=== PATIENT | male | born 1970 | race Two or more races ===

== ENCOUNTER 2023-11-30 17:54 | Emergency (ER) | payer MEDICAID, OTHER ==
[~2023-11-30] VITALS: Ht 170.2 cm; Wt 69.2 kg
[2023-11-30 18:52] LABS: Basophils # (auto) 0.1 10 ^3/uL (0-0.2); Basophils % (auto) 2.2 % (0.0-2.0); Eosinophils # (auto) 0.2 10 ^3/uL (0-0.8); Hematocrit 34.9 % (41.0-53.0); Hemoglobin 12.1 g/dL (13.5-17.5); Lymphocytes # (auto) 1.4 10 ^3/uL (0.4-5.4); Lymphocytes % (auto) 23.2 % (10.0-50.0); Mean Corpuscular Hemoglobin 27.1 pg (28.0-32.0); Mean Corpuscular Hgb Conc. 34.8 g/dL (32.0-36.0); Mean Corpuscular Volume 77.9 fL (80.0-100.0); Monocytes # (auto) 0.4 10 ^3/uL (0-1.3); Neutrophils % (auto) 63.6 % (37.0-80.0); Nucleated Red Blood Cells % 0.2 %; Platelet Count (auto) 343 10^3/uL (140-450); Red Blood Cells 4.48 10^6/uL (4.5-5.90); Red Cell Distribution Width 13.9 % (11.8-14.3); White Blood Cell 6.2 10^3/uL (4.4-10.8)
[2023-11-30 19:03] LABS: Acetaminophen < 2.0 UG/ML (10.0-20.0); Alanine Aminotransferase 16 U/L (7-40); Albumin 4.3 g/dL (3.2-4.8); Alkaline Phosphatase 67 U/L (46-116); Anion Gap 8 (5-15); Aspartate Aminotransferase 20 U/L (13-40); BUN/Creatinine Ratio 7.6 (10.0-20.0); Bilirubin, Total 0.2 mg/dL (0.2-1.0); Blood Urea Nitrogen 11 mg/dL (9-23); Calcium 9.1 mg/dL (8.7-10.4); Carbon Dioxide 25 mmol/L (20-30); Chloride 105 mmol/L (98-107); Glucose 190 mg/dL (74-106); Potassium 3.5 mmol/L (3.5-5.1); Sodium 138 mmol/L (136-145); Total Protein 6.9 g/dL (5.7-8.2)
[2023-11-30 19:05] LABS: Salicylate < 3.0 mg/dL (2.8-20.0)
[2023-11-30 19:18] LABS: Blood Alcohol 209.5 mg/dL (<10)
[2023-11-30 19:29] VITALS: PULSE 98; RESP 16; O2SAT 99
[2023-11-30 20:13] LABS: Amphetamine Screen, Urine Neg (NEGATIVE); Barbiturate Scree,Urine Neg (NEGATIVE); Benzodiazephine Screen, Urine Neg (NEGATIVE); Cannabinoid Screen, Urine Neg (NEGATIVE); Cocaine Screen, Urine Neg (NEGATIVE); Opiate Scree,Urine Neg (NEGATIVE); Phencyclidine Screen, Urine Neg (NEGATIVE)
[2023-11-30] MEDS: MIRTAZAPINE 30 MG TAB PO ONE (22:02)
[2023-12-01 07:52] VITALS: PULSE 89; RESP 18; O2SAT 97
[2023-12-01] MEDS: cloNIDine HCL 0.1 MG TAB PO ONE (07:57)
[2023-12-01 20:10] VITALS: BP 180/99; PULSE 89; RESP 18; TEMP 98.1; O2SAT 97
== END 2023-12-01 20:15 | disposition short-term general hospital (02) ==
LOC: ER 17:54
DX: R45.851 Suicidal ideations (principal); R07.89 Other chest pain; R51.9 Headache, unspecified; E11.9 Type 2 diabetes mellitus without complications; E78.5 Hyperlipidemia, unspecified; I10 Essential (primary) hypertension; Z79.899 Other long term (current) drug therapy
CPT/HCPCS: 36415; 80053; 80307; 80320; 80329; 82962; 85025; 93005